=== PATIENT | female | born 1945 | race Hispanic/Latino ===

== ENCOUNTER 2018-06-29 10:51 | Outpatient (CLI) | payer MEDICARE, BC | END 2018-06-29 10:52 | disposition home or self-care (01) | LOC: C.LAB 10:51 | DX: M79.9 Soft tissue disorder, unspecified (principal) ==

== ENCOUNTER 2018-07-23 05:55 | Day surgery (SDC) | payer MEDICARE, BC ==
[2018-07-23 06:33] VITALS: BMI 22.5
[2018-07-23] MEDS ORDERED: Bupivacaine HCl 0.5% PF (10 ml) Inj ONE (07:19)
[2018-07-23] MEDS ORDERED: Lidocaine 2% MPF (5 ml) Inj ONE (07:19)
[2018-07-23] MEDS ORDERED: Lactated Ringer's 1,000 ML IV ONE (07:32)
[2018-07-23] MEDS ORDERED: Midazolam 2 MG/2 ML VIAL ONE (07:41)
[2018-07-23] MEDS ORDERED: Propofol 10 mg/ml Inj (20 ML) ONE ×2 (07:44→07:53)
[2018-07-23] MEDS ORDERED: ceFAZolin 1 gm in NS 1 GM/100 ML BAG IVPB ONE (07:54)
--- NOTE | 2018-07-23 08:33 | PCM.SURG1 ---
Surgeon's Initial Post Op Note - Surgeon's Notes Surgeon: Dr. Hammond DPM Dental Practice Manager: Dr. Dahl PGY1, Dr. Beltrán PGY2 Type of Anesthesia: IV Sedation, Local Pre-Operative Diagnosis: left foot soft tissue mass Operative Findings: see dictation. I 1:1 0.5% marcaine plain, 1% lidocaine plain 20cc. M 3-0 vicryl, 3-0 prolene, xeroform, DSD, CHET Post-Operative Diagnosis: same Operation Performed: removal of left foot soft tissue mass Specimen/Specimens Removed: left foot soft tissue mass Estimated Blood Loss: EBL {In ML}: 1 Blood Products Given: N/A Drains Used: No Drains Post-Op Condition: Good Date of Surgery/Procedure: 07/23/18 Time of Surgery/Procedure: 08:33
[2018-07-23] MEDS ORDERED: Oxycodone/Acetaminophen 5/325 mg Tab PO PRN ×2 (08:34)
[2018-07-23] MEDS ORDERED: HYDROmorphone 0.5 mg/0.5 ml ISec IVP PRN (08:39)
[2018-07-23 08:52] VITALS: O2SAT 100
[2018-07-23 09:50] VITALS: BP 116/69; PULSE 77; RESP 18; TEMP 97
--- NOTE | 2018-07-24 04:31 | OP ---
PROCEDURE DATE: 07/23/2018 SURGEON: Ibrahima Huston DPM SPEECH COMMUNICATION INSTRUCTOR: Remy Dahl MD, PGY-1; Dr. Beltrán, PGY-2. ANESTHESIA: IV sedation with local. PREOPERATIVE DIAGNOSIS: Left foot soft tissue mass. POSTOPERATIVE DIAGNOSIS: Left foot soft tissue mass. PROCEDURE: Removal of left foot soft tissue mass. INDICATION: The patient is a 73-year-old female with the above mentioned diagnosis. The patient exhausted all conservative treatments at this time and now requires surgical intervention. The patient signed consent after careful explanation of all risks, benefits, complications of the proposed surgical procedure. No guarantees have been given or implied. PREPARATION: The patient was brought into the operating table and placed in the operating room table in a supine position. A time-out was performed for identification of the correct patient and procedure. The patient received a total of 20 mL of 1:1 mixture of 0.5% Marcaine plain and 1% lidocaine plain in a ring block fashion to the left foot. Once local anesthesia was achieved, the left foot was then prepped and draped in a normal sterile manner. Pneumatic ankle tourniquet was applied to the patient's left ankle and was inflated to 250 mmHg and the procedure began. DESCRIPTION OF PROCEDURE: Attention was directed to the medial aspect of the right foot where a soft tissue lesion was located measuring about 1.5 cm in diameter. At this point, a #15 blade was used to make an elliptical incision on the margin of the lesion. Using a 1-2 pickup, the lesion was then lifted and deeper incision was made using the blade to fully excise the lesion from the skin. A full-thickness lesion was then taken and passed off the field and sent for pathology. The skin and subcutaneous layers were then closed, subcutaneous layer was being closed with 3-0 Vicryl and skin closed with 3-0 Prolene with a simple suture technique. The incision site was then dressed with Xeroform, dry sterile dressing, and Horacio wrap. Prior to being dressed and closed with sutures, the site was irrigated copiously with sterile saline. POSTOPERATIVE CONDITION: The patient tolerated the anesthesia and procedure well and was escorted to the recovery room with vital signs stable, neurovascular intact to the left foot. The patient is to be full weightbearing as tolerated in a surgical shoe. The patient will follow up with Dr. Huston in his office within one week of discharge. REMY DAHL MD Ibrahima Huston DPM
== END 2018-07-23 10:00 | disposition home or self-care (01) ==
LOC: C.SDS 05:55
PROVIDERS: ATTEND Podiatrist Foot & Ankle Surgery
DX: D23.72 Other benign neoplasm of skin of left lower limb, including hip (principal); M79.9 Soft tissue disorder, unspecified
CPT/HCPCS: 28039; 88307; J0690; J2001; J2250; J2704; J3010; J7120